=== PATIENT | female | born 1990 | race Two or more races ===

== ENCOUNTER 2019-10-18 09:52 | Inpatient (IN) | payer OTHER ==
[~2019-10-18] VITALS: Ht 165.1 cm; Wt 122.5 kg
[2019-11-08] MEDS ORDERED: PRENATAL 19 TA1 EACH PO (09:42)
[2019-11-09] MEDS ORDERED: ZYRTEC10 M3 PO (09:18)
== END 2019-11-10 11:41 | disposition home or self-care (01) | DRG 807 ==
LOC: LDR 11-08 09:05 → SURG-SUITE 11-08 18:56 → OB/GYN 11-11 12:15
PROVIDERS: ADMIT Obstetrics & Gynecology
PROC: 10E0XZZ Delivery of Products of Conception, External Approach (ICD-10-PCS; principal; 2019-11-08)
PROC: 0KQM0ZZ Repair Perineum Muscle, Open Approach (ICD-10-PCS; 2019-11-08)
PROC: 3E033VJ Introduction of Other Hormone into Peripheral Vein, Percutaneous Approach (ICD-10-PCS; 2019-11-08)
PROC: 4A1HXCZ Monitoring of Products of Conception, Cardiac Rate, External Approach (ICD-10-PCS; 2019-11-08)
DX: O70.1 Second degree perineal laceration during delivery (principal); Z37.0 Single live birth; Z3A.39 39 weeks gestation of pregnancy